=== PATIENT | female | born 1970 | race Caucasian/White ===

== ENCOUNTER 2020-04-13 08:30 | Outpatient (CLI) | payer BC ==
--- NOTE | 2020-04-13 09:13 | ULT ---
THYROID ULTRASOUND INDICATION: Hypothyroidism TECHNIQUE: Grayscale and color Doppler images were obtained of the thyroid gland. COMPARISON: None FINDINGS: Thyroid gland is diffusely hypertrophied with diffuse hypoechogenicity. There is diffuse in creased vascular flow throughout the thyroid gland. Right thyroid lobe: The right thyroid lobe measures 2.1 x 5.3 x 1.8 cm. There is a 9 x 8 x 9 mm solid hyperechoic, well-circumscribed, nodule in the superior pole of the right thyroid lobe. Thyroid isthmus: The thyroid isthmus measures 0.70 cm. Left thyroid lobe: The left thyroid lobe measures 1.9 x 5.5 x 1.8 cm. IMPRESSION: 1. Diffuse hypertrophy, hypoechogenicity and increased vascular flow of the thyroid gland. Findings a re suspicious for a thyroiditis. 2. TIRADS 3 lesion, below 1.5 cm in size, in the superior pole right thyroid lobe. No sonographic fol low-up is recommended.
== END 2020-04-13 08:31 | disposition home or self-care (01) ==
LOC: SCSULT 08:30
PROVIDERS: ATTEND Family Medicine
DX: E03.9 Hypothyroidism, unspecified (principal); E03.4 Atrophy of thyroid (acquired); R94.6 Abnormal results of thyroid function studies; E07.89 Other specified disorders of thyroid; E04.9 Nontoxic goiter, unspecified
CPT/HCPCS: 76536

== ENCOUNTER 2022-02-16 13:33 | Outpatient (CLI) | payer BC | END 2022-02-16 13:34 | disposition home or self-care (01) | LOC: BICMRI 13:33 | PROVIDERS: ATTEND Specialist | DX: M51.17 Intervertebral disc disorders with radiculopathy, lumbosacral region (principal); M47.26 Other spondylosis with radiculopathy, lumbar region | CPT/HCPCS: 72148 ==